=== PATIENT | female | born 1945 | race Caucasian/White ===

== ENCOUNTER 2021-04-29 13:43 | Inpatient (IN) ==
[2021-04-29 16:24] LABS: ABS Basophils 0.1 10^3/ul (0-0.2); ABS Monocytes 1.2 10^3/ul (0-0.8); ABS Neutrophils 14.7 10^3/ul (1.5-7.7); Eosinophil % 0.1 %; Hematocrit 41 % (35-47); Hemoglobin 13.4 g/dL (12.0-16.0); Lymphocyte % 5.8 %; Mean Corpuscular HGB Conc 33 g/dL (31-36); Mean Corpuscular Hemoglobin 29 pg (27-31); Mean Corpuscular Volume 86 fL (80-97); Mean Platelet Volume 8.9 fL (7.4-10.4); Platelet Count 312 10^3/uL (150-450); Red Blood Count 4.72 10^6 /uL (3.70-4.87); Red Cell Distribution Width 14 % (10-15)
[2021-04-29 16:44] LABS: Rapid COVID-19 Molecular Undetected (Undetected)
[2021-04-29 16:46] LABS: ALT 16 U/L (7-52); AST 13 U/L (13-39); Albumin 3.6 g/dL (3.2-5.2); Albumin/Globulin Ratio 0.9 (1-3); Alkaline Phosphatase 76 U/L (35-149); Anion Gap 8 mmol/L (2-11); Blood Urea Nitrogen 6 mg/dL (6-24); C Reactive Protein 279.37 mg/L (<8.01); CO2 Carbon Dioxide 32 mmol/L (22-32); Chloride 92 mmol/L (101-111); Glucose 108 mg/dL (70-100); Potassium 3.2 mmol/L (3.5-5.0); Sodium 132 mmol/L (135-145); Total Protein 7.6 g/dL (6.4-8.9); eGFR CKD-EPI 72.6 (>60)
[2021-04-29] MEDS ORDERED: Potassium Chlor 20 meq TAB.ER PO ONE ×2 (17:02→22:50)
[2021-04-29] MEDS ORDERED: Iodixanol (CONTRAST) 320 MG/ML 100 ML SDV IV ONE (17:03)
[2021-04-29] MEDS ORDERED: oxyCODONE/Acetamin 5/325 mg TAB PO ONE (17:56)
[2021-04-29] MEDS ORDERED: Piperacillin/Tazobac ADVAN 3.375 GM in NS 0.9% 100 ml BAG 100 ML IV ONE (18:21)
[2021-04-29] MEDS ORDERED: Vancomycin 1,500 MG in NS 0.9% 250 ml 250 ML IVPB ONE (18:22)
[2021-04-29 18:43] LABS: Erythrocyte Sed Rate 81 mm/Hr (0-29)
[2021-04-29] MEDS ORDERED: Heparin 5000 UNITS/ML 1 mL VIAL SUBCUT ONE (20:09)
[2021-04-29] MEDS ORDERED: NS 0.9% 250 ml 250 ML ONE (20:17)
[2021-04-29] MEDS ORDERED: Albuterol HFA INHALER 8 gm MDI INH PRN (21:00)
[2021-04-29 21:16] LABS: Magnesium 1.7 mg/dL (1.9-2.7)
[2021-04-30] MEDS: Cefepime 2 GM in Dextrose 2 GM/50 ML BAG IV SCH ×2 (00:43→18:21)
[2021-04-30] MEDS ORDERED: Dextrose 50% Syringe 50 ml 25 GM/50 ML SYRINGE IV PUSH PRN (02:29)
[2021-04-30 03:05] LABS: TSH Ultra Thyroid Stim Horm 1.24 mcIU/mL (0.34-5.60)
[2021-04-30 03:16] LABS: Vitamin B12 > 1450 pg/mL (180-914)
[2021-04-30] MEDS: metroNIDAZOLE IV 500 MG/100ML 500 MG/100 ML BAG IVPB SCH ×3 (05:50→23:07)
[2021-04-30 06:29] LABS: Hematocrit 40 % (35-47); Hemoglobin 13.2 g/dL (12.0-16.0); Mean Corpuscular HGB Conc 33 g/dL (31-36); Mean Corpuscular Hemoglobin 29 pg (27-31); Mean Corpuscular Volume 88 fL (80-97); Mean Platelet Volume 9.4 fL (7.4-10.4); Platelet Count 281 10^3/uL (150-450); Red Cell Distribution Width 13 % (10-15); White Blood Count 14.9 10^3/uL (3.5-10.8)
[2021-04-30 07:07] LABS: Albumin 3.3 g/dL (3.2-5.2); Albumin/Globulin Ratio 0.9 (1-3); Calcium 8.5 mg/dL (8.6-10.3); Direct Bilirubin 0.5 mg/dL (0.03-0.18); Globulin 3.5 g/dL (2-4); Indirect Bilirubin 0.9 mg/dL (0.3-1.0); Potassium 3.8 mmol/L (3.5-5.0); Total Bilirubin 1.4 mg/dL (0.2-1.0); Total Protein 6.8 g/dL (6.4-8.9); eGFR CKD-EPI 81.9 (>60)
[2021-04-30] MEDS ORDERED: Vancomycin per Pharmacy 1 EA NOTE FOLLOW UP SCH (08:00)
[2021-04-30] MEDS ORDERED: Vancomycin 1,000 MG in NS 0.9% 250 ml 250 ML IVPB ONE (08:00)
[2021-04-30] MEDS ORDERED: Mirabegron 25 mg ER TAB (NF) PO SCH (09:00)
[2021-04-30] MEDS: Vancomycin 1000 MG in NS 0.9% 250 ML IVPB SCH ×2 (09:16→20:55)
[2021-04-30] MEDS: Calcium/Vitamin D TAB 250/125 TAB PO SCH (09:20)
[2021-04-30] MEDS: Potassium Chlor 10 meq TAB PO SCH (09:23)
[2021-04-30] MEDS: DULoxetine DR 60 mg CAP PO SCH ×2 (09:23→20:58)
[2021-04-30] MEDS ORDERED: Bupivacaine 0.5% SDV PF 30ML VIAL ONE (14:12)
[2021-04-30] MEDS ORDERED: Dexamethasone IV 4 MG/ML VIAL 1 ml VIAL ONE (14:13)
[2021-04-30] MEDS ORDERED: Propofol 10 MG/ML 20 ML BTL ONE ×3 (14:13→15:31)
[2021-04-30] MEDS ORDERED: Lidocaine 2% PF 5 ML VIAL ONE (14:13)
[2021-04-30] MEDS ORDERED: fentaNYL 100 mcg/2 ml 50 MCG/ML VIAL ONE (14:13)
[2021-04-30] MEDS ORDERED: Ondansetron 4 mg VIAL 2 MG/ML 2 ml VIAL ONE (14:13)
[2021-04-30] MEDS ORDERED: Midazolam 2 mg/2 ml VIAL 1 mg/ml 2 ml VIAL (2 mg) ONE (14:14)
[2021-04-30] MEDS ORDERED: PREGABALIN 200 MG PO SCH (21:00)
[2021-05-01] MEDS: Cefepime 2 GM in Dextrose 2 GM/50 ML BAG IV SCH (01:28)
[2021-05-01] MEDS: oxyCODONE/Acetamin 5/325 mg TAB PO PRN ×2 (02:20→21:56)
[2021-05-01] MEDS: metroNIDAZOLE IV 500 MG/100ML 500 MG/100 ML BAG IVPB SCH (06:05)
[2021-05-01] MEDS ORDERED: Vancomycin Trough Check NOTE FOLLOW UP ONE (08:00)
[2021-05-01] MEDS: Vancomycin 1000 MG in NS 0.9% 250 ML IVPB SCH ×3 (08:44→21:13)
[2021-05-01] MEDS: Calcium/Vitamin D TAB 250/125 TAB PO SCH (08:45)
[2021-05-01] MEDS: DULoxetine DR 60 mg CAP PO SCH ×2 (08:45→21:19)
[2021-05-01] MEDS: Potassium Chlor 10 meq TAB PO SCH (08:46)
[2021-05-01 09:23] LABS: ABS Eosinophils 0.3 10^3/ul (0-0.6); ABS Lymphocytes 1.3 10^3/ul (1.0-4.8); ABS Monocytes 0.9 10^3/ul (0-0.8); ABS Neutrophils 11.3 10^3/ul (1.5-7.7); Eosinophil % 1.9 %; Hematocrit 39 % (35-47); Hemoglobin 12.5 g/dL (12.0-16.0); Lymphocyte % 9.4 %; Mean Corpuscular HGB Conc 33 g/dL (31-36); Mean Corpuscular Hemoglobin 28 pg (27-31); Mean Corpuscular Volume 87 fL (80-97); Platelet Count 317 10^3/uL (150-450); Red Blood Count 4.42 10^6 /uL (3.70-4.87); Red Cell Distribution Width 14 % (10-15); White Blood Count 13.7 10^3/uL (3.5-10.8)
[2021-05-01 09:47] LABS: Albumin 3.2 g/dL (3.2-5.2); Albumin/Globulin Ratio 0.9 (1-3); C Reactive Protein 284.92 mg/L (<8.01); Calcium 8.5 mg/dL (8.6-10.3); Globulin 3.5 g/dL (2-4); Potassium 3.6 mmol/L (3.5-5.0); Total Bilirubin 0.7 mg/dL (0.2-1.0); Total Protein 6.7 g/dL (6.4-8.9); eGFR CKD-EPI 75.8 (>60)
[2021-05-01 10:38] LABS: Erythrocyte Sed Rate 83 mm/Hr (0-29)
[2021-05-01 11:18] LABS: Vancomycin Trough 8.5 mcg/mL
[2021-05-01] MEDS ORDERED: Enoxaparin 40 MG/0.4 ML SYR SUBCUT ONE (15:39)
[2021-05-02] MEDS ORDERED: Iodixanol (CONTRAST) 320 MG/ML 100 ML SDV IV ONE (05:22)
[2021-05-02 06:04] LABS: ABS Eosinophils 0.3 10^3/ul (0-0.6); ABS Lymphocytes 1.6 10^3/ul (1.0-4.8); ABS Monocytes 0.9 10^3/ul (0-0.8); ABS Neutrophils 11.4 10^3/ul (1.5-7.7); Hematocrit 39 % (35-47); Hemoglobin 12.6 g/dL (12.0-16.0); Lymphocyte % 11.6 %; Mean Corpuscular HGB Conc 32 g/dL (31-36); Mean Corpuscular Hemoglobin 28 pg (27-31); Mean Corpuscular Volume 88 fL (80-97); Mean Platelet Volume 8.9 fL (7.4-10.4); Platelet Count 329 10^3/uL (150-450); Red Blood Count 4.49 10^6 /uL (3.70-4.87); Red Cell Distribution Width 14 % (10-15); White Blood Count 14.2 10^3/uL (3.5-10.8)
[2021-05-02 06:20] LABS: Calcium 8.4 mg/dL (8.6-10.3); Potassium 3.4 mmol/L (3.5-5.0); eGFR CKD-EPI 83.3 (>60)
[2021-05-02] MEDS ORDERED: Potassium Chlor 20 meq TAB.ER PO ONE (08:41)
[2021-05-02] MEDS ORDERED: cefTRIAXone 1 gm/50 mL NS BAG 1 GM/50 ML BAG IVPB ONE (09:00)
[2021-05-02 09:07] LABS: Magnesium 1.9 mg/dL (1.9-2.7)
[2021-05-02] MEDS: DULoxetine DR 60 mg CAP PO SCH ×2 (09:27→20:30)
[2021-05-02] MEDS: oxyCODONE/Acetamin 5/325 mg TAB PO PRN ×2 (09:28→20:30)
[2021-05-02] MEDS: Calcium/Vitamin D TAB 250/125 TAB PO SCH (09:28)
[2021-05-02] MEDS: Potassium Chlor 10 meq TAB PO SCH (09:29)
[2021-05-02] MEDS: Vancomycin 1000 MG in NS 0.9% 250 ML IVPB SCH ×2 (10:49→20:32)
[2021-05-02 13:58] LABS: C Reactive Protein 201.49 mg/L (<8.01)
[2021-05-02] MEDS: Enoxaparin 40 MG/0.4 ML SYR SUBCUT SCH (20:32)
[2021-05-03] MEDS ORDERED: oxyCODONE/Acetamin 5/325 mg TAB PO ONE (00:30)
[2021-05-03] MEDS ORDERED: Vancomycin Trough Check NOTE FOLLOW UP ONE (08:00)
[2021-05-03] MEDS: Vancomycin 1000 MG in NS 0.9% 250 ML IVPB SCH ×3 (09:12→20:33)
[2021-05-03 09:19] LABS: ABS Eosinophils 0.3 10^3/ul (0-0.6); ABS Lymphocytes 1.9 10^3/ul (1.0-4.8); ABS Monocytes 0.6 10^3/ul (0-0.8); Eosinophil % 2.6 %; Hematocrit 39 % (35-47); Hemoglobin 12.7 g/dL (12.0-16.0); Lymphocyte % 17.1 %; Mean Corpuscular HGB Conc 33 g/dL (31-36); Mean Corpuscular Hemoglobin 29 pg (27-31); Mean Corpuscular Volume 88 fL (80-97); Mean Platelet Volume 8.8 fL (7.4-10.4); Platelet Count 389 10^3/uL (150-450); Red Cell Distribution Width 14 % (10-15); White Blood Count 10.8 10^3/uL (3.5-10.8)
[2021-05-03] MEDS: Calcium/Vitamin D TAB 250/125 TAB PO SCH (09:23)
[2021-05-03] MEDS: Potassium Chlor 10 meq TAB PO SCH (09:24)
[2021-05-03] MEDS: DULoxetine DR 60 mg CAP PO SCH ×2 (09:24→20:35)
[2021-05-03 09:35] LABS: Calcium 8.9 mg/dL (8.6-10.3); Potassium 4.5 mmol/L (3.5-5.0); eGFR CKD-EPI 78.2 (>60)
[2021-05-03 09:36] LABS: eGFR CKD-EPI 78.2 (>60)
[2021-05-03 09:58] LABS: Vancomycin Trough 14.5 mcg/mL
[2021-05-03 10:11] LABS: C Reactive Protein 134.75 mg/L (<8.01)
[2021-05-03] MEDS ORDERED: Gadoteridol (CONTRAST) 279.3 MG/ML 10 ML IV ONE (14:49)
[2021-05-03] MEDS: Enoxaparin 40 MG/0.4 ML SYR SUBCUT SCH (20:33)
[2021-05-03] MEDS: Amoxicillin/Clavul 875/125 TAB (Augmentin 875 tab) PO SCH (20:35)
[2021-05-03] MEDS: oxyCODONE/Acetamin 5/325 mg TAB PO PRN (22:55)
[2021-05-04 05:06] LABS: Hematocrit 41 % (35-47); Hemoglobin 13.1 g/dL (12.0-16.0); Mean Corpuscular HGB Conc 32 g/dL (31-36); Mean Corpuscular Hemoglobin 28 pg (27-31); Mean Corpuscular Volume 88 fL (80-97); Platelet Count 342 10^3/uL (150-450); Red Blood Count 4.66 10^6 /uL (3.70-4.87); Red Cell Distribution Width 14 % (10-15)
[2021-05-04 05:13] LABS: C Reactive Protein 92.53 mg/L (<8.01); Calcium 8.9 mg/dL (8.6-10.3); Potassium 4.3 mmol/L (3.5-5.0); eGFR CKD-EPI 81.9 (>60)
[2021-05-04] MEDS: Calcium/Vitamin D TAB 250/125 TAB PO SCH (08:13)
[2021-05-04] MEDS: DULoxetine DR 60 mg CAP PO SCH ×2 (08:13→20:13)
[2021-05-04] MEDS: Vancomycin 1000 MG in NS 0.9% 250 ML IVPB SCH ×2 (08:13→20:12)
[2021-05-04] MEDS: Amoxicillin/Clavul 875/125 TAB (Augmentin 875 tab) PO SCH ×2 (08:14→20:13)
[2021-05-04] MEDS: Potassium Chlor 10 meq TAB PO SCH (08:14)
[2021-05-04] MEDS ORDERED: Enoxaparin 40 MG/0.4 ML SYR SUBCUT ONE (12:00)
[2021-05-04 14:08] LABS: Rapid COVID-19 Molecular Undetected (Undetected)
[2021-05-04] MEDS: oxyCODONE/Acetamin 5/325 mg TAB PO PRN ×2 (15:52→21:41)
[2021-05-05 04:53] LABS: Hematocrit 39 % (35-47); Hemoglobin 13.1 g/dL (12.0-16.0); Mean Corpuscular HGB Conc 33 g/dL (31-36); Mean Corpuscular Hemoglobin 29 pg (27-31); Mean Corpuscular Volume 87 fL (80-97); Mean Platelet Volume 8.7 fL (7.4-10.4); Platelet Count 392 10^3/uL (150-450); Red Blood Count 4.54 10^6 /uL (3.70-4.87); Red Cell Distribution Width 14 % (10-15); White Blood Count 9.9 10^3/uL (3.5-10.8)
[2021-05-05 05:32] LABS: ABS Basophils 0.1 10^3/ul (0-0.2); ABS Eosinophils 0.3 10^3/ul (0-0.6); ABS Lymphocytes 2.1 10^3/ul (1.0-4.8); ABS Monocytes 0.7 10^3/ul (0-0.8); ABS Neutrophils 6.7 10^3/ul (1.5-7.7); Lymphocyte % 21.7 %; Nucleated Red Blood Cells % 0.1
[2021-05-05 05:34] LABS: C Reactive Protein 59.16 mg/L (<8.01); Calcium 8.9 mg/dL (8.6-10.3); eGFR CKD-EPI 63.3 (>60)
[2021-05-05] MEDS: Vancomycin 1000 MG in NS 0.9% 250 ML IVPB SCH ×2 (09:43→21:53)
[2021-05-05] MEDS: DULoxetine DR 60 mg CAP PO SCH ×2 (09:53→21:56)
[2021-05-05] MEDS: Amoxicillin/Clavul 875/125 TAB (Augmentin 875 tab) PO SCH ×2 (09:53→21:56)
[2021-05-05] MEDS: Calcium/Vitamin D TAB 250/125 TAB PO SCH (09:53)
[2021-05-05] MEDS: oxyCODONE/Acetamin 5/325 mg TAB PO PRN ×2 (09:55→21:57)
[2021-05-05] MEDS: Potassium Chlor 10 meq TAB PO SCH (09:55)
[2021-05-05] MEDS ORDERED: fentaNYL 100 mcg/2 ml 50 MCG/ML VIAL ONE (13:38)
[2021-05-05] MEDS ORDERED: Midazolam 2 mg/2 ml VIAL 1 mg/ml 2 ml VIAL (2 mg) ONE (13:39)
[2021-05-05] MEDS ORDERED: Propofol 10 MG/ML 20 ML BTL ONE ×3 (13:39→15:32)
[2021-05-05] MEDS ORDERED: Bupivacaine 0.5% SDV PF 30ML VIAL ONE (14:00)
[2021-05-05] MEDS ORDERED: Clindamycin 900 MG/D5W BAG 900 MG/50 ML BAG IVPB ONE (14:26)
[2021-05-06] MEDS ORDERED: oxyCODONE/Acetamin 5/325 mg TAB PO ONE (01:40)
[2021-05-06] MEDS: oxyCODONE/Acetamin 5/325 mg TAB PO PRN ×2 (01:43→12:56)
[2021-05-06 08:21] LABS: Hematocrit 40 % (35-47); Hemoglobin 13.4 g/dL (12.0-16.0); Mean Corpuscular HGB Conc 33 g/dL (31-36); Mean Corpuscular Hemoglobin 29 pg (27-31); Mean Corpuscular Volume 87 fL (80-97); Mean Platelet Volume 8.9 fL (7.4-10.4); Platelet Count 436 10^3/uL (150-450); Red Blood Count 4.62 10^6 /uL (3.70-4.87); Red Cell Distribution Width 14 % (10-15); White Blood Count 10.3 10^3/uL (3.5-10.8)
[2021-05-06] MEDS ORDERED: Vancomycin Trough Check NOTE FOLLOW UP ONE (08:30)
[2021-05-06 08:38] LABS: Calcium 9.2 mg/dL (8.6-10.3); Magnesium 1.9 mg/dL (1.9-2.7); Potassium 4.3 mmol/L (3.5-5.0); eGFR CKD-EPI 68.6 (>60)
[2021-05-06 08:52] LABS: Vancomycin Trough 19.8 mcg/mL
[2021-05-06] MEDS: DULoxetine DR 60 mg CAP PO SCH ×2 (09:28→21:50)
[2021-05-06] MEDS: Potassium Chlor 10 meq TAB PO SCH (09:30)
[2021-05-06] MEDS: Amoxicillin/Clavul 875/125 TAB (Augmentin 875 tab) PO SCH ×2 (09:30→21:51)
[2021-05-06] MEDS: Calcium/Vitamin D TAB 250/125 TAB PO SCH (09:30)
[2021-05-06] MEDS: Vancomycin 1000 MG in NS 0.9% 250 ML IVPB SCH (09:33)
[2021-05-06] MEDS: Enoxaparin 40 MG/0.4 ML SYR SUBCUT SCH (12:56)
[2021-05-06] MEDS ORDERED: NF: Mirabegron 25 mg ER TAB (NF) PO SCH (15:00)
[2021-05-06] MEDS: PTO: Mirabegron 25 mg ER TAB (NF) PO SCH (16:43)
[2021-05-06] MEDS: Vancomycin 750 MG in NS 0.9% 250 ML IVPB SCH (21:44)
[2021-05-07] MEDS: oxyCODONE/Acetamin 5/325 mg TAB PO PRN ×2 (01:57→17:09)
[2021-05-07 07:03] LABS: Hematocrit 41 % (35-47); Hemoglobin 13.9 g/dL (12.0-16.0); Mean Corpuscular HGB Conc 34 g/dL (31-36); Mean Corpuscular Hemoglobin 29 pg (27-31); Mean Corpuscular Volume 86 fL (80-97); Mean Platelet Volume 8.8 fL (7.4-10.4); Platelet Count 430 10^3/uL (150-450); Red Cell Distribution Width 15 % (10-15); White Blood Count 9.6 10^3/uL (3.5-10.8)
[2021-05-07 07:12] LABS: Potassium 4.4 mmol/L (3.5-5.0)
[2021-05-07 07:42] LABS: C Reactive Protein 36.38 mg/L (<8.01); Calcium 9.4 mg/dL (8.6-10.3); Magnesium 2.1 mg/dL (1.9-2.7); eGFR CKD-EPI 69.5 (>60)
[2021-05-07] MEDS: Amoxicillin/Clavul 875/125 TAB (Augmentin 875 tab) PO SCH (08:41)
[2021-05-07] MEDS: Calcium/Vitamin D TAB 250/125 TAB PO SCH (08:41)
[2021-05-07] MEDS: DULoxetine DR 60 mg CAP PO SCH ×2 (08:42→20:05)
[2021-05-07] MEDS: PTO: Mirabegron 25 mg ER TAB (NF) PO SCH (08:43)
[2021-05-07] MEDS: Potassium Chlor 10 meq TAB PO SCH (08:43)
[2021-05-07] MEDS: Vancomycin 750 MG in NS 0.9% 250 ML IVPB SCH ×2 (08:45→20:07)
[2021-05-07] MEDS: Enoxaparin 40 MG/0.4 ML SYR SUBCUT SCH (13:54)
[2021-05-07] MEDS: Lidocaine PATCH 5% PATCH TRANSDERM SCH (17:09)
[2021-05-07] MEDS ORDERED: Lidocaine Patch REMOVE NOTE PATCH OFF SCH (21:00)
[2021-05-07 22:22] LABS: Urine Appearance Cloudy; Urine Bilirubin Negative (Negative); Urine Blood Negative (Negative); Urine Color Yellow; Urine Glucose Negative (Negative); Urine Ketones Negative (Negative); Urine Nitrite Negative (Negative); Urine Protein Negative (Negative); Urine Specific Gravity 1.016 (1.002-1.030); Urine Urobilinogen Negative (Negative)
[2021-05-08 07:05] LABS: C Reactive Protein 20.05 mg/L (<8.01); Calcium 9.3 mg/dL (8.6-10.3); Potassium 4.2 mmol/L (3.5-5.0); eGFR CKD-EPI 68.6 (>60)
[2021-05-08 07:26] LABS: Hematocrit 44 % (35-47); Mean Corpuscular HGB Conc 32 g/dL (31-36); Mean Corpuscular Hemoglobin 28 pg (27-31); Mean Corpuscular Volume 88 fL (80-97); Mean Platelet Volume 9.1 fL (7.4-10.4); Platelet Count 404 10^3/uL (150-450); Red Blood Count 4.93 10^6 /uL (3.70-4.87); Red Cell Distribution Width 15 % (10-15); White Blood Count 9.8 10^3/uL (3.5-10.8)
[2021-05-08] MEDS ORDERED: Vancomycin Trough Check NOTE FOLLOW UP ONE (08:00)
[2021-05-08] MEDS: Calcium/Vitamin D TAB 250/125 TAB PO SCH (09:54)
[2021-05-08] MEDS: DULoxetine DR 60 mg CAP PO SCH ×2 (09:54→20:30)
[2021-05-08] MEDS: Lidocaine PATCH 5% PATCH TRANSDERM SCH ×2 (09:55→10:13)
[2021-05-08] MEDS: Vancomycin 750 MG in NS 0.9% 250 ML IVPB SCH ×2 (10:00→20:29)
[2021-05-08] MEDS: Potassium Chlor 10 meq TAB PO SCH (10:09)
[2021-05-08] MEDS: PTO: Mirabegron 25 mg ER TAB (NF) PO SCH (10:09)
[2021-05-08] MEDS: Lidocaine Patch REMOVE NOTE PATCH OFF SCH ×2 (10:09→20:52)
[2021-05-08] MEDS: Enoxaparin 40 MG/0.4 ML SYR SUBCUT SCH (12:14)
[2021-05-08] MEDS: oxyCODONE/Acetamin 5/325 mg TAB PO PRN ×2 (12:20→20:51)
[2021-05-09 06:25] LABS: Hematocrit 43 % (35-47); Hemoglobin 14.1 g/dL (12.0-16.0); Mean Corpuscular HGB Conc 33 g/dL (31-36); Mean Corpuscular Hemoglobin 29 pg (27-31); Mean Corpuscular Volume 87 fL (80-97); Platelet Count 427 10^3/uL (150-450); Red Blood Count 4.94 10^6 /uL (3.70-4.87); Red Cell Distribution Width 14 % (10-15); White Blood Count 8.8 10^3/uL (3.5-10.8)
[2021-05-09 06:45] LABS: C Reactive Protein 14.16 mg/L (<8.01); Calcium 9.4 mg/dL (8.6-10.3); Potassium 4.3 mmol/L (3.5-5.0)
[2021-05-09] MEDS: Lidocaine PATCH 5% PATCH TRANSDERM SCH ×2 (10:23)
[2021-05-09] MEDS: Calcium/Vitamin D TAB 250/125 TAB PO SCH (10:24)
[2021-05-09] MEDS: Potassium Chlor 10 meq TAB PO SCH (10:24)
[2021-05-09] MEDS: oxyCODONE/Acetamin 5/325 mg TAB PO PRN (10:25)
[2021-05-09] MEDS: DULoxetine DR 60 mg CAP PO SCH ×2 (10:25→20:35)
[2021-05-09] MEDS: Lidocaine Patch REMOVE NOTE PATCH OFF SCH ×2 (10:26→20:36)
[2021-05-09] MEDS: PTO: Mirabegron 25 mg ER TAB (NF) PO SCH (10:26)
[2021-05-09] MEDS: Vancomycin 750 MG in NS 0.9% 250 ML IVPB SCH ×2 (10:26→20:29)
[2021-05-09] MEDS: Enoxaparin 40 MG/0.4 ML SYR SUBCUT SCH (13:17)
[2021-05-10] MEDS: PTO: Mirabegron 25 mg ER TAB (NF) PO SCH (09:06)
[2021-05-10] MEDS: Calcium/Vitamin D TAB 250/125 TAB PO SCH (09:07)
[2021-05-10] MEDS: DULoxetine DR 60 mg CAP PO SCH ×2 (09:07→22:39)
[2021-05-10] MEDS: Potassium Chlor 10 meq TAB PO SCH (09:07)
[2021-05-10] MEDS: Vancomycin 750 MG in NS 0.9% 250 ML IVPB SCH ×2 (09:07→22:34)
[2021-05-10] MEDS: Lidocaine PATCH 5% PATCH TRANSDERM SCH ×2 (09:07→09:08)
[2021-05-10] MEDS: Lidocaine Patch REMOVE NOTE PATCH OFF SCH ×2 (09:08→22:54)
[2021-05-10] MEDS: Enoxaparin 40 MG/0.4 ML SYR SUBCUT SCH (14:27)
[2021-05-10] MEDS: oxyCODONE/Acetamin 5/325 mg TAB PO PRN (22:38)
[2021-05-11] MEDS: Calcium/Vitamin D TAB 250/125 TAB PO SCH (08:56)
[2021-05-11] MEDS: Vancomycin 750 MG in NS 0.9% 250 ML IVPB SCH ×2 (08:56→20:40)
[2021-05-11] MEDS: DULoxetine DR 60 mg CAP PO SCH ×2 (08:57→20:41)
[2021-05-11] MEDS: Lidocaine PATCH 5% PATCH TRANSDERM SCH ×2 (08:57→08:58)
[2021-05-11] MEDS: Potassium Chlor 10 meq TAB PO SCH (08:57)
[2021-05-11] MEDS: PTO: Mirabegron 25 mg ER TAB (NF) PO SCH (08:58)
[2021-05-11] MEDS: Lidocaine Patch REMOVE NOTE PATCH OFF SCH ×2 (09:12→20:44)
[2021-05-11 10:37] LABS: ABS Eosinophils 0.1 10^3/ul (0-0.6); ABS Lymphocytes 1.7 10^3/ul (1.0-4.8); ABS Monocytes 0.5 10^3/ul (0-0.8); ABS Neutrophils 5.2 10^3/ul (1.5-7.7); Eosinophil % 1.8 %; Hematocrit 43 % (35-47); Hemoglobin 14.3 g/dL (12.0-16.0); Lymphocyte % 22.9 %; Mean Corpuscular HGB Conc 34 g/dL (31-36); Mean Corpuscular Hemoglobin 29 pg (27-31); Mean Corpuscular Volume 86 fL (80-97); Mean Platelet Volume 8.9 fL (7.4-10.4); Nucleated Red Blood Cells % 0.1; Platelet Count 363 10^3/uL (150-450); Red Blood Count 4.96 10^6 /uL (3.70-4.87); Red Cell Distribution Width 14 % (10-15); White Blood Count 7.6 10^3/uL (3.5-10.8)
[2021-05-11] MEDS: Enoxaparin 40 MG/0.4 ML SYR SUBCUT SCH (13:41)
[2021-05-12] MEDS ORDERED: Vancomycin Trough Check NOTE FOLLOW UP ONE (08:00)
[2021-05-12] MEDS: Calcium/Vitamin D TAB 250/125 TAB PO SCH (09:16)
[2021-05-12] MEDS: Vancomycin 750 MG in NS 0.9% 250 ML IVPB SCH ×2 (09:16→19:55)
[2021-05-12] MEDS: Potassium Chlor 10 meq TAB PO SCH (09:16)
[2021-05-12] MEDS: Lidocaine PATCH 5% PATCH TRANSDERM SCH ×2 (09:17→09:18)
[2021-05-12] MEDS: DULoxetine DR 60 mg CAP PO SCH ×2 (09:17→22:14)
[2021-05-12] MEDS: PTO: Mirabegron 25 mg ER TAB (NF) PO SCH (09:19)
[2021-05-12] MEDS: Lidocaine Patch REMOVE NOTE PATCH OFF SCH ×2 (09:19→23:22)
[2021-05-12] MEDS: Enoxaparin 40 MG/0.4 ML SYR SUBCUT SCH (12:33)
[2021-05-12] MEDS: oxyCODONE/Acetamin 5/325 mg TAB PO PRN (22:17)
[2021-05-13 07:31] VITALS: BP 129/61
[2021-05-13] MEDS ORDERED: Vancomycin Trough Check NOTE FOLLOW UP ONE (08:30)
[2021-05-13] MEDS: Vancomycin 750 MG in NS 0.9% 250 ML IVPB SCH (08:49)
[2021-05-13] MEDS: Lidocaine PATCH 5% PATCH TRANSDERM SCH ×2 (08:50→08:51)
[2021-05-13] MEDS: PTO: Mirabegron 25 mg ER TAB (NF) PO SCH (08:52)
[2021-05-13] MEDS: Potassium Chlor 10 meq TAB PO SCH (08:54)
[2021-05-13] MEDS: Calcium/Vitamin D TAB 250/125 TAB PO SCH (08:54)
[2021-05-13] MEDS: DULoxetine DR 60 mg CAP PO SCH (08:54)
[2021-05-13] MEDS: Lidocaine Patch REMOVE NOTE PATCH OFF SCH (09:06)
[2021-05-13] MEDS ORDERED: oxyCODONE/Acetamin 5/325 mg TAB PO PRN (09:46)
[2021-05-13] MEDS: Enoxaparin 40 MG/0.4 ML SYR SUBCUT SCH (13:14)
[2021-05-14] MEDS ORDERED: Vancomycin Trough Check NOTE FOLLOW UP ONE (08:00)
[2021-05-14] MEDS ORDERED: Cholecalciferol (VIT D3) 1,000 unit TAB PO SCH (09:00)
== END 2021-05-13 14:42 | DRG 314 ==
LOC: ED 13:43 → SUATTDRO 20:06 → EDHOLD 20:06 → SSU 22:29
PROVIDERS: ADMIT Student in an Organized Health Care Education/Training Program; ATTEND Internal Medicine

== ENCOUNTER 2021-06-24 16:40 | Inpatient (IN) ==
[2021-06-24] MEDS ORDERED: NS 0.9% 1000 ml BAG 1,000 ML IV.FLUID IV ONE (17:20)
[2021-06-24] MEDS ORDERED: Vancomycin 1,750 MG in NS 0.9% 500 ml BAG 500 ML IVPB ONE (18:00)
[2021-06-24] MEDS ORDERED: Ondansetron 4 mg VIAL 2 MG/ML 2 ml VIAL IV PRN (19:15)
[2021-06-24 19:47] LABS: ABS Lymphocytes 0.8 10^3/ul (1.0-4.8); ABS Monocytes 0.7 10^3/ul (0-0.8); ABS Neutrophils 16.4 10^3/ul (1.5-7.7); Hematocrit 39 % (35-47); Hemoglobin 13.2 g/dL (12.0-16.0); Lymphocyte % 4.6 %; Mean Corpuscular HGB Conc 34 g/dL (31-36); Mean Corpuscular Hemoglobin 29 pg (27-31); Mean Corpuscular Volume 87 fL (80-97); Mean Platelet Volume 9.5 fL (7.4-10.4); Platelet Count 250 10^3/uL (150-450); Red Blood Count 4.52 10^6 /uL (3.70-4.87); Red Cell Distribution Width 15 % (10-15); White Blood Count 17.9 10^3/uL (3.5-10.8)
[2021-06-24 19:59] LABS: Albumin 3.6 g/dL (3.2-5.2); Albumin/Globulin Ratio 1.2 (1-3); Calcium 8.4 mg/dL (8.6-10.3); Globulin 3.1 g/dL (2-4); Potassium 4.3 mmol/L (3.5-5.0); Total Bilirubin 1.1 mg/dL (0.2-1.0); Total Protein 6.7 g/dL (6.4-8.9); eGFR CKD-EPI 69.5 (>60)
[2021-06-24] MEDS ORDERED: Vancomycin per Pharmacy 1 EA NOTE FOLLOW UP SCH (20:00)
[2021-06-24] MEDS ORDERED: Albuterol HFA INHALER 8 gm MDI INH PRN (21:21)
[2021-06-24] MEDS ORDERED: Heparin 5000 UNITS/ML 1 mL VIAL SUBCUT SCH (22:00)
[2021-06-25 01:38] LABS: Activated Partial Thrombo Time 28.3 seconds (26.0-38.0); INR 1.24 (0.86-1.15)
[2021-06-25] MEDS: oxyCODONE/Acetamin 5/325 mg TAB PO PRN ×2 (01:40→22:02)
[2021-06-25 01:49] LABS: High Sensitivity Troponin 1 Hr 14 pg/mL (<15)
[2021-06-25 02:40] LABS: Urine Appearance Cloudy; Urine Bilirubin Negative (Negative); Urine Blood Negative (Negative); Urine Color Amber; Urine Glucose Negative (Negative); Urine Ketones Negative (Negative); Urine Nitrite Negative (Negative); Urine Protein 1+(30 mg/dL) (Negative); Urine Specific Gravity 1.025 (1.002-1.030); Urine Urobilinogen Negative (Negative)
[2021-06-25 02:42] LABS: Urine Bacteria Absent (Absent); Urine Red Blood Cell 1+(3-5/hpf) (Absent); Urine Squamous Epithelial Cell Present (Absent); Urine White Blood Cell 1+(6-10/hpf) (Absent)
[2021-06-25 07:05] LABS: ABS Lymphocytes 0.8 10^3/ul (1.0-4.8); ABS Monocytes 0.5 10^3/ul (0-0.8); ABS Neutrophils 11.8 10^3/ul (1.5-7.7); Hematocrit 37 % (35-47); Hemoglobin 12.3 g/dL (12.0-16.0); Lymphocyte % 6.3 %; Mean Corpuscular HGB Conc 34 g/dL (31-36); Mean Corpuscular Hemoglobin 29 pg (27-31); Mean Corpuscular Volume 87 fL (80-97); Mean Platelet Volume 9.4 fL (7.4-10.4); Platelet Count 235 10^3/uL (150-450); Red Blood Count 4.24 10^6 /uL (3.70-4.87); Red Cell Distribution Width 16 % (10-15); White Blood Count 13.1 10^3/uL (3.5-10.8)
[2021-06-25 07:14] LABS: Activated Partial Thrombo Time 29.2 seconds (26.0-38.0); INR 1.24 (0.86-1.15)
[2021-06-25 07:40] LABS: Albumin 3.1 g/dL (3.2-5.2); Albumin/Globulin Ratio 1.1 (1-3); C Reactive Protein 153.71 mg/L (<8.01); Calcium 7.7 mg/dL (8.6-10.3); Globulin 2.8 g/dL (2-4); Potassium 3.9 mmol/L (3.5-5.0); Total Bilirubin 0.7 mg/dL (0.2-1.0); Total Protein 5.9 g/dL (6.4-8.9); eGFR CKD-EPI 87.5 (>60)
[2021-06-25] MEDS ORDERED: Heparin 5000 UNITS/ML 1 mL VIAL SUBCUT SCH (09:00)
[2021-06-25] MEDS: Potassium Chlor 10 meq TAB PO SCH (09:51)
[2021-06-25] MEDS: DULoxetine DR 60 mg CAP PO SCH (09:52)
[2021-06-25] MEDS: Lidocaine PATCH 5% PATCH TRANSDERM SCH (09:52)
[2021-06-25] MEDS: Vancomycin 750 MG in NS 0.9% 250 ML IVPB SCH ×2 (09:53→21:39)
[2021-06-25] MEDS ORDERED: Perflutren Lipid Microsphere 3 ML VIAL ONE (11:36)
[2021-06-26] MEDS ORDERED: Naloxone 0.4 mg VIAL 0.4 mg/ml 1 ml VIAL ONE (07:57)
[2021-06-26] MEDS ORDERED: Flumazenil 0.5 mg/5 ml 0.1 MG/ML 5 ml VIAL ONE (07:57)
[2021-06-26] MEDS ORDERED: Midazolam 5 mg/5 ml VIAL 1 mg/ml 5 ml VIAL (5 mg) ONE (07:57)
[2021-06-26] MEDS ORDERED: fentaNYL 100 mcg/2 ml 50 MCG/ML VIAL ONE (07:57)
[2021-06-26] MEDS ORDERED: Vancomycin Trough Check NOTE FOLLOW UP ONE (08:30)
[2021-06-26] MEDS: Lidocaine PATCH 5% PATCH TRANSDERM SCH (11:01)
[2021-06-26] MEDS: Potassium Chlor 10 meq TAB PO SCH (11:02)
[2021-06-26] MEDS: DULoxetine DR 60 mg CAP PO SCH (11:03)
[2021-06-26 12:44] LABS: ABS Monocytes 0.7 10^3/ul (0-0.8); ABS Neutrophils 6.4 10^3/ul (1.5-7.7); Hematocrit 38 % (35-47); Hemoglobin 12.6 g/dL (12.0-16.0); Lymphocyte % 21.8 %; Mean Corpuscular HGB Conc 34 g/dL (31-36); Mean Corpuscular Hemoglobin 29 pg (27-31); Mean Corpuscular Volume 87 fL (80-97); Mean Platelet Volume 9.4 fL (7.4-10.4); Platelet Count 280 10^3/uL (150-450); Red Cell Distribution Width 16 % (10-15); White Blood Count 9.1 10^3/uL (3.5-10.8)
[2021-06-26 12:59] LABS: Calcium 8.1 mg/dL (8.6-10.3); eGFR CKD-EPI 91.7 (>60)
[2021-06-26] MEDS: Vancomycin 750 MG in NS 0.9% 250 ML IVPB SCH (14:05)
[2021-06-26] MEDS: Vancomycin 1000 MG in NS 0.9% 250 ML IVPB SCH ×2 (14:34→22:02)
[2021-06-26] MEDS: oxyCODONE/Acetamin 5/325 mg TAB PO PRN (21:56)
[2021-06-27 06:15] LABS: ABS Lymphocytes 2.1 10^3/ul (1.0-4.8); ABS Monocytes 0.8 10^3/ul (0-0.8); ABS Neutrophils 6.9 10^3/ul (1.5-7.7); Eosinophil % 0.1 %; Hematocrit 36 % (35-47); Lymphocyte % 21.3 %; Mean Corpuscular HGB Conc 33 g/dL (31-36); Mean Corpuscular Hemoglobin 29 pg (27-31); Mean Corpuscular Volume 88 fL (80-97); Mean Platelet Volume 9.3 fL (7.4-10.4); Nucleated Red Blood Cells % 0.1; Platelet Count 266 10^3/uL (150-450); Red Blood Count 4.13 10^6 /uL (3.70-4.87); Red Cell Distribution Width 15 % (10-15); White Blood Count 9.7 10^3/uL (3.5-10.8)
[2021-06-27 07:02] LABS: Calcium 8.3 mg/dL (8.6-10.3); eGFR CKD-EPI 74.7 (>60)
[2021-06-27 07:11] LABS: Potassium 5.3 mmol/L (3.5-5.0)
[2021-06-27] MEDS ORDERED: NS 0.9% 500 ml BAG 500 ML IV ONE (08:54)
[2021-06-27] MEDS: Lidocaine PATCH 5% PATCH TRANSDERM SCH (09:08)
[2021-06-27] MEDS: DULoxetine DR 60 mg CAP PO SCH (09:08)
[2021-06-27] MEDS: Vancomycin 1000 MG in NS 0.9% 250 ML IVPB SCH ×2 (09:09→20:57)
[2021-06-27] MEDS ORDERED: Midazolam 5 mg/5 ml VIAL 1 mg/ml 5 ml VIAL (5 mg) ONE (10:12)
[2021-06-27] MEDS ORDERED: Heparin 1,000 UNIT/ML 10 ml (10,000 UNITS) CATHLAB/DIALYSIS ONE (10:13)
[2021-06-27] MEDS ORDERED: fentaNYL 100 mcg/2 ml 50 MCG/ML VIAL ONE (10:13)
[2021-06-27] MEDS ORDERED: Lidocaine 1% MPF 5 ML VIAL ONE (10:28)
[2021-06-27] MEDS ORDERED: Heparin 2 UNITS/ML IVPREMIX 3,000 UNIT/1,500 ML BAG IV ONE (10:28)
[2021-06-27] MEDS ORDERED: Iodixanol 320 (CONTRAST) 100 ML SDV ONE (10:28)
[2021-06-27] MEDS ORDERED: Heparin 2 UNITS/ML IVPREMIX 1,000 UNIT/500 ML BAG IV ONE (11:14)
[2021-06-27] MEDS: Enoxaparin 40 MG/0.4 ML SYR SUBCUT SCH (16:11)
[2021-06-27] MEDS: oxyCODONE/Acetamin 5/325 mg TAB PO PRN (21:29)
[2021-06-28 06:41] LABS: ABS Lymphocytes 2.4 10^3/ul (1.0-4.8); ABS Monocytes 0.6 10^3/ul (0-0.8); ABS Neutrophils 5.3 10^3/ul (1.5-7.7); Eosinophil % 0.5 %; Hematocrit 39 % (35-47); Lymphocyte % 28.8 %; Mean Corpuscular HGB Conc 33 g/dL (31-36); Mean Corpuscular Hemoglobin 29 pg (27-31); Mean Corpuscular Volume 87 fL (80-97); Mean Platelet Volume 9.3 fL (7.4-10.4); Nucleated Red Blood Cells % 0.1; Platelet Count 284 10^3/uL (150-450); Red Blood Count 4.53 10^6 /uL (3.70-4.87); Red Cell Distribution Width 15 % (10-15); White Blood Count 8.4 10^3/uL (3.5-10.8)
[2021-06-28 07:00] LABS: Calcium 8.3 mg/dL (8.6-10.3); eGFR CKD-EPI 79.4 (>60)
[2021-06-28] MEDS: Lidocaine PATCH 5% PATCH TRANSDERM SCH (09:13)
[2021-06-28] MEDS: DULoxetine DR 60 mg CAP PO SCH (09:16)
[2021-06-28] MEDS: Vancomycin 1000 MG in NS 0.9% 250 ML IVPB SCH ×2 (09:17→22:51)
[2021-06-28] MEDS: Enoxaparin 40 MG/0.4 ML SYR SUBCUT SCH (15:56)
[2021-06-28] MEDS ORDERED: Dextrose 50% VIAL 50 ml IV PRN (16:45)
[2021-06-29 06:52] LABS: ABS Eosinophils 0.1 10^3/ul (0-0.6); ABS Lymphocytes 2.5 10^3/ul (1.0-4.8); ABS Monocytes 0.8 10^3/ul (0-0.8); Eosinophil % 1.1 %; Hematocrit 39 % (35-47); Hemoglobin 13.2 g/dL (12.0-16.0); Lymphocyte % 23.7 %; Mean Corpuscular HGB Conc 34 g/dL (31-36); Mean Corpuscular Hemoglobin 29 pg (27-31); Mean Corpuscular Volume 87 fL (80-97); Mean Platelet Volume 9.6 fL (7.4-10.4); Platelet Count 318 10^3/uL (150-450); Red Blood Count 4.52 10^6 /uL (3.70-4.87); Red Cell Distribution Width 16 % (10-15); White Blood Count 10.4 10^3/uL (3.5-10.8)
[2021-06-29 06:54] LABS: Calcium 8.5 mg/dL (8.6-10.3); Potassium 4.2 mmol/L (3.5-5.0); eGFR CKD-EPI 75.8 (>60)
[2021-06-29] MEDS: DULoxetine DR 60 mg CAP PO SCH (09:01)
[2021-06-29] MEDS: Lidocaine PATCH 5% PATCH TRANSDERM SCH (09:02)
[2021-06-29] MEDS: Vancomycin 1000 MG in NS 0.9% 250 ML IVPB SCH ×2 (09:02→20:15)
[2021-06-29] MEDS ORDERED: HYDROmorphone 1 MG/1 ML SYRINGE IV PRN (18:44)
[2021-06-29] MEDS ORDERED: Ondansetron 4 mg VIAL 2 MG/ML 2 ml VIAL IV PRN (18:44)
[2021-06-29] MEDS ORDERED: Naloxone 0.4 mg VIAL 0.4 mg/ml 1 ml VIAL IV PRN (18:44)
[2021-06-29] MEDS ORDERED: diPHENhydraMINE IV 50 MG/ML 1 ml VIAL (BENADRYL) IV PRN (18:44)
[2021-06-29] MEDS ORDERED: DiMENhydriNATE IV 50 mg/ml 1 ml VIAL IV PUSH PRN (18:44)
[2021-06-29] MEDS ORDERED: D5LR 1000 ml BAG 1,000 ML IV SCH (22:00)
[2021-06-30] MEDS ORDERED: Buffered Lidocaine 1% SYRIN 1 ml INTRADERM ONE (06:00)
[2021-06-30 07:36] LABS: ABS Eosinophils 0.3 10^3/ul (0-0.6); ABS Lymphocytes 2.1 10^3/ul (1.0-4.8); ABS Monocytes 0.8 10^3/ul (0-0.8); ABS Neutrophils 8.3 10^3/ul (1.5-7.7); Eosinophil % 2.2 %; Hematocrit 41 % (35-47); Hemoglobin 13.6 g/dL (12.0-16.0); Lymphocyte % 18.5 %; Mean Corpuscular HGB Conc 33 g/dL (31-36); Mean Corpuscular Hemoglobin 29 pg (27-31); Mean Corpuscular Volume 87 fL (80-97); Mean Platelet Volume 9.1 fL (7.4-10.4); Platelet Count 323 10^3/uL (150-450); Red Blood Count 4.72 10^6 /uL (3.70-4.87); Red Cell Distribution Width 16 % (10-15); White Blood Count 11.5 10^3/uL (3.5-10.8)
[2021-06-30 07:41] LABS: INR 1.21 (0.86-1.15)
[2021-06-30 08:25] LABS: Calcium 8.6 mg/dL (8.6-10.3); Potassium 4.4 mmol/L (3.5-5.0); eGFR CKD-EPI 68.6 (>60)
[2021-06-30] MEDS ORDERED: Vancomycin Trough Check NOTE FOLLOW UP ONE (08:30)
[2021-06-30] MEDS: DULoxetine DR 60 mg CAP PO SCH (08:42)
[2021-06-30] MEDS: Lidocaine PATCH 5% PATCH TRANSDERM SCH (08:43)
[2021-06-30] MEDS: Vancomycin 1000 MG in NS 0.9% 250 ML IVPB SCH ×2 (10:11→21:54)
[2021-06-30] MEDS ORDERED: Midazolam 2 mg/2 ml VIAL 1 mg/ml 2 ml VIAL (2 mg) ONE (13:38)
[2021-06-30] MEDS ORDERED: fentaNYL 250 mcg/5 ml 50 MCG/ML 5 ml VIAL (250 MCG) ONE (13:38)
[2021-06-30] MEDS ORDERED: Propofol 10 MG/ML 20 ML BTL ONE (13:40)
[2021-06-30] MEDS: Lactated Ringers 1000 ml BAG 1,000 ML IV SCH ×2 (13:42→20:52)
[2021-06-30] MEDS ORDERED: Rocuronium 50 mg VIAL 10 mg/ml 5 ml VIAL (50 mg) ONE (13:45)
[2021-06-30] MEDS ORDERED: Clindamycin 900 MG/D5W BAG 900 MG/50 ML BAG IVPB ONE (13:55)
[2021-06-30] MEDS ORDERED: Vancomycin 1,000 MG VIAL ONE (14:36)
[2021-06-30] MEDS ORDERED: Dexamethasone IV 4 MG/ML VIAL 1 ml VIAL ONE (14:49)
[2021-06-30] MEDS ORDERED: Lidocaine 2% PF 5 ML VIAL ONE (14:49)
[2021-06-30] MEDS ORDERED: Ondansetron 4 mg VIAL 2 MG/ML 2 ml VIAL ONE (14:49)
[2021-06-30] MEDS ORDERED: HYDROmorphone 0.5 MG/0.5 ML SYRINGE ONE (15:53)
[2021-06-30] MEDS ORDERED: fentaNYL 100 mcg/2 ml 50 MCG/ML VIAL IV PRN (18:54)
[2021-06-30] MEDS ORDERED: HYDROcodone/ACETAMIN 5/325 mg TAB PO PRN (18:54)
[2021-06-30] MEDS ORDERED: Naloxone 0.4 mg VIAL 0.4 mg/ml 1 ml VIAL IV PRN (18:54)
[2021-06-30] MEDS ORDERED: Ondansetron 4 mg VIAL 2 MG/ML 2 ml VIAL IV PRN (18:54)
[2021-06-30] MEDS ORDERED: Metoclopramide 5 MG/ML VIAL (10 mg) IV PRN (18:54)
[2021-06-30] MEDS ORDERED: HYDROcodone/ACETAMIN 5/325 mg TAB ONE (19:14)
[2021-06-30] MEDS: oxyCODONE/Acetamin 5/325 mg TAB PO PRN (21:38)
[2021-07-01] MEDS: oxyCODONE/Acetamin 5/325 mg TAB PO PRN ×3 (06:24→17:10)
[2021-07-01] MEDS: Lactated Ringers 1000 ml BAG 1,000 ML IV SCH (07:43)
[2021-07-01 07:53] LABS: ABS Lymphocytes 1.1 10^3/ul (1.0-4.8); ABS Monocytes 0.5 10^3/ul (0-0.8); ABS Neutrophils 11.4 10^3/ul (1.5-7.7); Eosinophil % 0.1 %; Hematocrit 41 % (35-47); Hemoglobin 13.6 g/dL (12.0-16.0); Lymphocyte % 8.2 %; Mean Corpuscular HGB Conc 33 g/dL (31-36); Mean Corpuscular Hemoglobin 29 pg (27-31); Mean Corpuscular Volume 87 fL (80-97); Mean Platelet Volume 8.8 fL (7.4-10.4); Platelet Count 326 10^3/uL (150-450); Red Blood Count 4.73 10^6 /uL (3.70-4.87); Red Cell Distribution Width 15 % (10-15)
[2021-07-01 08:33] LABS: Albumin 3.3 g/dL (3.2-5.2); C Reactive Protein 56.22 mg/L (<8.01); Calcium 8.6 mg/dL (8.6-10.3); Globulin 3.2 g/dL (2-4); Potassium 4.5 mmol/L (3.5-5.0); Total Bilirubin 0.7 mg/dL (0.2-1.0); Total Protein 6.5 g/dL (6.4-8.9); eGFR CKD-EPI 86.1 (>60)
[2021-07-01] MEDS: Lidocaine PATCH 5% PATCH TRANSDERM SCH (09:08)
[2021-07-01] MEDS: Polyethylene Glycol 3350 17 GM PACKET PO PRN (09:09)
[2021-07-01] MEDS: DULoxetine DR 60 mg CAP PO SCH (09:09)
[2021-07-01] MEDS: Vancomycin 1000 MG in NS 0.9% 250 ML IVPB SCH ×2 (09:10→20:14)
[2021-07-01] MEDS ORDERED: HYDROmorphone 1 MG/1 ML SYRINGE IV PRN ×2 (09:15→09:18)
[2021-07-01] MEDS: Enoxaparin 40 MG/0.4 ML SYR SUBCUT SCH (12:23)
[2021-07-02] MEDS: oxyCODONE/Acetamin 5/325 mg TAB PO PRN ×3 (03:13→17:21)
[2021-07-02] MEDS: Lactated Ringers 1000 ml BAG 1,000 ML IV SCH (06:30)
[2021-07-02 07:37] LABS: ABS Eosinophils 0.1 10^3/ul (0-0.6); ABS Lymphocytes 1.7 10^3/ul (1.0-4.8); ABS Monocytes 0.8 10^3/ul (0-0.8); ABS Neutrophils 5.9 10^3/ul (1.5-7.7); Eosinophil % 1.4 %; Hematocrit 39 % (35-47); Hemoglobin 12.5 g/dL (12.0-16.0); Lymphocyte % 20.2 %; Mean Corpuscular HGB Conc 32 g/dL (31-36); Mean Corpuscular Hemoglobin 28 pg (27-31); Mean Corpuscular Volume 88 fL (80-97); Mean Platelet Volume 8.7 fL (7.4-10.4); Nucleated Red Blood Cells % 0.1; Platelet Count 299 10^3/uL (150-450); Red Blood Count 4.42 10^6 /uL (3.70-4.87); Red Cell Distribution Width 16 % (10-15); White Blood Count 8.6 10^3/uL (3.5-10.8)
[2021-07-02 08:17] LABS: CO2 Carbon Dioxide 22 mmol/L (22-32); Calcium 8.2 mg/dL (8.6-10.3); Chloride 104 mmol/L (101-111); Sodium 134 mmol/L (135-145)
[2021-07-02 08:22] LABS: Blood Urea Nitrogen 12 mg/dL (6-24); Glucose 92 mg/dL (70-100); eGFR CKD-EPI 72.6 (>60)
[2021-07-02] MEDS: Lidocaine PATCH 5% PATCH TRANSDERM SCH (08:39)
[2021-07-02 08:40] LABS: Anion Gap 8 mmol/L (2-11)
[2021-07-02] MEDS: Magnesium Hydroxide LIQ 30 ML UDC PO PRN (08:41)
[2021-07-02] MEDS: DULoxetine DR 60 mg CAP PO SCH (08:42)
[2021-07-02] MEDS: Vancomycin 1000 MG in NS 0.9% 250 ML IVPB SCH ×2 (08:43→21:16)
[2021-07-02] MEDS: Enoxaparin 40 MG/0.4 ML SYR SUBCUT SCH (12:11)
[2021-07-03] MEDS: oxyCODONE/Acetamin 5/325 mg TAB PO PRN (04:43)
[2021-07-03 05:46] LABS: Hematocrit 40 % (35-47); Mean Platelet Volume 8.8 fL (7.4-10.4); Platelet Count 276 10^3/uL (150-450)
[2021-07-03] MEDS: Magnesium Hydroxide LIQ 30 ML UDC PO PRN ×2 (06:02→14:29)
[2021-07-03 06:31] LABS: Potassium 4.7 mmol/L (3.5-5.0); eGFR CKD-EPI 63.3 (>60)
[2021-07-03] MEDS: DULoxetine DR 60 mg CAP PO SCH (09:17)
[2021-07-03] MEDS: Lidocaine PATCH 5% PATCH TRANSDERM SCH (09:22)
[2021-07-03] MEDS: Polyethylene Glycol 3350 17 GM PACKET PO PRN (10:25)
[2021-07-03] MEDS: Vancomycin 1000 MG in NS 0.9% 250 ML IVPB SCH (10:46)
[2021-07-03] MEDS: Enoxaparin 40 MG/0.4 ML SYR SUBCUT SCH (12:09)
[2021-07-03] MEDS ORDERED: oxyCODONE/Acetamin 5/325 mg TAB PO PRN (13:52)
[2021-07-03] MEDS ORDERED: Acetaminophen IV 1 GM/100ML 100 ML IV PRN (15:20)
[2021-07-03] MEDS ORDERED: Vancomycin 1,500 MG in NS 0.9% 250 ml 250 ML IVPB SCH (21:00)
[2021-07-04] MEDS ORDERED: Vancomycin Trough Check NOTE FOLLOW UP ONE (08:30)
[2021-07-04 09:47] LABS: Hematocrit 37 % (35-47); Hemoglobin 12.3 g/dL (12.0-16.0); Mean Platelet Volume 8.7 fL (7.4-10.4); Platelet Count 277 10^3/uL (150-450)
[2021-07-04] MEDS: Lidocaine PATCH 5% PATCH TRANSDERM SCH (09:54)
[2021-07-04] MEDS: DULoxetine DR 60 mg CAP PO SCH (09:55)
[2021-07-04 10:27] LABS: C Reactive Protein 86.72 mg/L (<8.01); Calcium 8.1 mg/dL (8.6-10.3); Potassium 4.5 mmol/L (3.5-5.0); eGFR CKD-EPI 67.6 (>60)
[2021-07-04] MEDS ORDERED: Vancomycin 1,500 MG in NS 0.9% 250 ml 250 ML IVPB ONE (12:00)
[2021-07-04] MEDS: Enoxaparin 40 MG/0.4 ML SYR SUBCUT SCH (12:32)
[2021-07-04 13:19] LABS: Rapid COVID-19 Molecular Undetected (Undetected)
[2021-07-04] MEDS ORDERED: COVID-19 VACCINE, MRNA(MODERNA) BOOSTER/PF 50 MCG/0.25 ML IM ONE (14:00)
[2021-07-04 15:40] VITALS: BP 109/59
[2021-07-05] MEDS ORDERED: Vancomycin Trough Check NOTE FOLLOW UP ONE (20:30)
== END 2021-07-04 17:00 | DRG 305 ==
LOC: ED 16:40 → SUATTDRO 19:15 → EDHOLD 19:15 → MED 06-25 00:12 → SSU 06-30 19:46
PROVIDERS: ADMIT Internal Medicine; ATTEND Student in an Organized Health Care Education/Training Program
PROC: O.ORAMP (2021-06-30 15:15)